=== PATIENT | female | born 1955 | race Two or more races ===

== ENCOUNTER → 2020-06-19 | Emergency (ER) | payer OTHER ==
[~2020-06-19] VITALS: Ht 165.1 cm; Wt 77.1 kg
[~2020-06-19] MED LIST: IOHEXOL 300 MG/ML 100ML BOTTLE IJ ONE; LIDOCAINE 2% (LOCAL ANESTH.) PF 5ml SDV ONE; MORPHINE SULFATE 4 MG/ML SYR/VIAL IV ONE; ONDANSETRON HCL 4 MG/2 ML VIAL IV ONE; SODIUM CHLORIDE 0.9% 1,000 ML IV ONE; TETANUS-DIPTH-ACEL PERTUSSIS 0.5ML SYR Tdap IM ONE; cefTRIAXone 1GM/50ML D5W 50 ML IV ONE
[2020-06-19 14:42] LABS: Basophils # (auto) 0.1 10 ^3/uL (0-0.2); Basophils % (auto) 0.7 % (0.0-2.0); Eosinophils # (auto) 0 10 ^3/uL (0-0.8); Eosinophils % (auto) 0.3 % (0.0-7.0); Hematocrit 39.9 % (36.0-46.0); Hemoglobin 13.4 g/dL (12.2-16.2); Lymphocytes # (auto) 1.6 10 ^3/uL (0.4-5.4); Lymphocytes % (auto) 10.6 % (10.0-50.0); Mean Corpuscular Hgb Conc. 33.5 g/dL (32.0-36.0); Mean Corpuscular Volume 92.4 fL (80.0-100.0); Monocytes # (auto) 0.8 10 ^3/uL (0-1.3); Monocytes % (auto) 5.5 % (0.0-12.0); Neutrophils # (auto) 12.2 10 ^3/uL (1.6-8.6); Neutrophils % (auto) 82.9 % (37.0-80.0); Platelet Count (auto) 238 10^3/uL (140-450); Red Blood Cells 4.32 10^6/uL (4.0-5.20); Red Cell Distribution Width 12.9 % (11.8-14.3); White Blood Cell 14.7 10^3/uL (4.4-10.8)
[2020-06-19 14:50] LABS: Albumin 3.6 g/dL (3.4-5.0); Anion Gap 6 (5-15); Blood Urea Nitrogen 21 mg/dL (7-18); Calcium 8.1 mg/dL (8.5-10.1); Carbon Dioxide 26 mmol/L (21-32); Chloride 106 mmol/L (98-107); Glucose 164 mg/dL (74-106); Potassium 3.6 mmol/L (3.5-5.1); Sodium 138 mmol/L (136-145)
[2020-06-19 14:52] LABS: BUN/Creatinine Ratio 17.9; GFR African American 60 mL/min; GFR Non-African American 50 mL/min
[2020-06-19 14:57] LABS: Alanine Aminotransferase 170 U/L (13-56); Alkaline Phosphatase 81 U/L (45-117); Aspartate Aminotransferase 174 U/L (15-37); Bilirubin, Total 0.4 mg/dL (0.2-1.0); Total Protein 7.1 g/dL (6.4-8.2)
[2020-06-19 16:57] VITALS: BP 116/64
[2020-06-19 17:06] LABS: Urine Bacteria NONE SEEN /hpf (None Seen); Urine Blood 2+ /uL (Negative); Urine Mucus FEW (None Seen); Urine WBC 3 /hpf (0 - 5)
== END | disposition home or self-care (01) ==
LOC: ER 12:59 → EDBD 12:59
DX: S22.42XA Multiple fractures of ribs, left side, initial encounter for closed fracture (principal); S39.91XA Unspecified injury of abdomen, initial encounter; S37.812A Contusion of adrenal gland, initial encounter; S01.01XA Laceration without foreign body of scalp, initial encounter; M50.31 Other cervical disc degeneration, high cervical region; V49.9XXA Car occupant (driver) (passenger) injured in unspecified traffic accident, initial encounter; Y93.89 Activity, other specified; Y92.89 Other specified places as the place of occurrence of the external cause; Y99.8 Other external cause status
CPT/HCPCS: 12002; 36415; 70450; 71260; 72125; 73130; 73590; 74177; 80053; 81001; 84484; 85025; 90471; 90715; 96361; 96365; 96375; 99291; J0696; J2001; J2270; J2405; Q9967